=== PATIENT | male | born 1975 ===

== ENCOUNTER 2020-09-09 10:51 | Outpatient (REF) | payer OTHER, SELFPAY ==
[2020-09-09 12:48] LABS: Alanine Aminotransferase 24 U/L (0-40); Albumin Level 4.1 g/dL (3.5-5.0); Alkaline Phosphatase 71 U/L (39-117); Anion Gap 12 (12-20); Aspartate Amino Transferase 20 U/L (5-37); Bilirubin Total 0.4 mg/dL (0.0-1.0); Blood Urea Nitrogen 12 mg/dL (9-16); Calcium 9.3 mg/dL (8.4-10.2); Carbon Dioxide 26 mmol/L (22-29); Chloride 106 mmol/L (96-108); Cholesterol 182 mg/dL; Estimated Glomerular Filt Rate > 60; Glucose Fasting 89 mg/dL (60-99); HDL Cholesterol 41 mg/dL; LDL Cholesterol Calculated 113 mg/dl; Potassium 4.1 mmol/L (3.3-5.1); Sodium 140 mmol/L (135-145); Total Protein 6.9 g/dL (6.5-8.0); Triglycerides 140 mg/dL
== END 2020-09-09 10:52 | disposition home or self-care (01) ==
LOC: HO.LAB 10:51
PROVIDERS: PCP Internal Medicine; Visit Provider Internal Medicine
DX: E78.5 Hyperlipidemia, unspecified (principal); Z83.3 Family history of diabetes mellitus
CPT/HCPCS: 36415; 80053; 80061

== ENCOUNTER 2022-03-29 11:13 | Emergency (ER) | payer OTHER, SELFPAY ==
[2022-03-29 11:21] VITALS: BP 102/63; PULSE 66; RESP 18; TEMP 36.6; O2SAT 100; BMI 22.8
[2022-03-29] MEDS: Diphth,Pertus(ACell),Tet Adult 0.5 ML SYRINGE IM (14:11)
[2022-03-29] MEDS: Lidocaine HCl 1 % MPF 2 ML VIAL INFILTRATI ×4 (14:14→14:15)
--- NOTE | 2022-03-29 14:29 | ED.GENADULT ---
HPI - General Adult General Chief complaint: Wound/Laceration Stated complaint: Lump on butt Time Seen by Provider: 03/29/22 13:53 Source: patient Mode of arrival: ambulatory Limitations: no limitations History of Present Illness HPI narrative: 46 yold male presents to the ED for right buttock painful lump. patient states it has increased in size. Patient denies any rectal pain, rectal bleeding, or recet trauma to buttock area. Related Data Previous Rx's Medication Instructions Recorded cephalexin 500 mg capsule 500 mg PO QID 7 days #28 caps 03/29/22 doxycycline hyclate 100 mg capsule 100 mg PO BID 7 days #14 caps 03/29/22 oxycodone 5 mg capsule 5 mg PO TID PRN pain 3 days #9 caps 03/29/22 Allergies Allergy/AdvReac Type Severity Reaction Status Date / Time No Known Allergies Allergy Verified 12/17/21 13:35 [No Known Allergies*] Review of Systems Review of Systems: buttock abscess Yes all other systems are reviewed and are negative [facility] Past Medical History Medical History Family history of diabetes mellitus Surgical History No pertinent past surgical history Family History Family History Mother Asthma Father Diabetes Social History Social History Housing: House (with girlfriend) Alcohol intake: current Alcohol intake frequency: holidays/special occasions only Patient Tobacco Use Status: Current everyday Tobacco user Tobacco use type: Cigarette Cigarettes Per Day: 4 e-Cigarette/Vaping Use: Never Used Second Hand Smoke Exposure: Yes Advance Directives: Yes Advance Directives Information Provided: Yes Advance Directives on File: No service: Yes Current occupational status: unemployed Cognitive needs: No Hearing needs: No Vision needs: No Physical Exam ED Vital Signs: Vital Signs - 24 hr 03/29/22 11:21 Temperature 98 F Pulse Rate 66 Respiratory Rate 18 Blood Pressure 102/63 Pulse Oximetry 100 Oxygen Delivery Method Room Air BMI result Body Mass Index 22.8 Const General: cooperative, healthy appearing, comfortable, no acute distress, well developed and alert Orientation/consciousness: oriented to person, oriented to place, oriented to time and patient oriented x3 HENNV Head: Yes normal to inspection, Yes No palpable skull fracture present, Yes normocephalic, Yes atraumatic and No abrasion Eyes General: appearance normal, both eyes and all related structures Neck Neck: Yes normal visual inspection, Yes full ROM, Yes no lymphadenopathy, Yes no meningeal signs, Yes trachea midline, Yes supple, No anterior neck swelling and No tender Chest Chest palpation & inspection: normal inspection of the chest and normal palpation of entire chest wall Resp Effort & Inspection: normal respiratory effort and able to speak in complete sentences Auscultation: clear to auscultation bilaterally Cardio Jugular venous distension: no JVD Heart sounds: S1 normal heart sound present and S2 normal heart sound present GI Inspection: Yes normal to inspection and No abdominal wall ecchymosis Palpation (GI): Soft to palpation, not firm, nontender, no guarding and not rigid Back/Spine/Pelvis Back/spine/pelvis image: 1. Fluctuant tender and erythematous. Negative for any tracking abscess to the rectum or anus. Negative for any testicular swelling mass or abscess. Skin General skin exam: no rashes or lesions noted and elasticity normal Neuro General: oriented to person, oriented to place, oriented to time, patient oriented x3, gait normal, tone normal and no meningeal signs Cranial nerves: Yes CN's II-XII intact bilaterally Extrem General: Yes normal to inspection and Yes full ROM Psych Appearance: grossly normal, well kempt and not disheveled Course Course Course Narrative: Tdap ordered will Incision and draainge abscess Reevaluation(s) Reevaluation #1: Lidocaine 12% 6ml was placed into abscess after being cleaned with betatdine iodine and sterile water. Size 11 blade was used for inscision. yellow pus was drained. Forceps was placed into abscess to open pocket two drainaged more abscess. sterile water placed in abscess for wash out. no packing needed. patietn will be dsicharged with antbiotics and pain meds Time: 15:01 Medical Decision Making [facility] Narrative Medical decision making narrative: Abscess Discharge Plan Discharge Clinical Impression: Abscess Patient Disposition: Home, Self-Care Instructions: Abscess (ED), Abscess Incision and Drainage (DC) Additional Instructions: You will be dsicharged with pain medication and antibiotics. Return to the ED for worsening pain, fever, chills, rectal pain, or any other concerning symptoms. Please follow up wiht PCP Prescriptions: New cephalexin 500 mg capsule 500 mg PO QID 7 Days Qty: 28 0RF doxycycline hyclate 100 mg capsule 100 mg PO BID 7 Days Qty: 14 0RF oxycodone 5 mg capsule 5 mg PO TID PRN (Reason: pain) 3 Days Qty: 9 0RF Rx Instructions: Partial Fill upon patient request. Side is effect is drowsiness. Do not take at home or while driving Stand Alone Forms: Work/School Release Interventions: ED Discharge Assessment Last Done: 03/29/22 15:43 Discharge Date/Time: 03/29/22 15:44 Print Language: Upper Sorbian
[2022-03-29] MEDS: oxyCODONE HCl Immed Release 5 MG TABLET PO (14:54)
== END 2022-03-29 15:44 | disposition home or self-care (01) ==
PROVIDERS: Emergency Provider Emergency Medicine; PCP Internal Medicine
DX: L02.31 Cutaneous abscess of buttock (principal); S30.810A Abrasion of lower back and pelvis, initial encounter; F17.210 Nicotine dependence, cigarettes, uncomplicated; X58.XXXA Exposure to other specified factors, initial encounter; Y93.9 Activity, unspecified; Y92.9 Unspecified place or not applicable; Y99.9 Unspecified external cause status; Z71.6 Tobacco abuse counseling
CPT/HCPCS: 10060; 90471; 90715; 99283; 99284

== ENCOUNTER 2022-08-09 09:14 | Outpatient (REF) | payer OTHER, SELFPAY ==
[2022-08-09 11:30] LABS: Alanine Aminotransferase 27 U/L (0-40); Alkaline Phosphatase 70 U/L (39-117); Anion Gap 11 (12-20); Aspartate Amino Transferase 22 U/L (5-37); Bilirubin Total 0.9 mg/dL (0.0-1.0); Blood Urea Nitrogen 16 mg/dL (9-16); Calcium 9.6 mg/dL (8.4-10.2); Carbon Dioxide 28 mmol/L (22-29); Chloride 107 mmol/L (96-108); Cholesterol 176 mg/dL; Estimated Glomerular Filt Rate > 60; Glucose Fasting 97 mg/dL (60-99); HDL Cholesterol 51 mg/dL; LDL Cholesterol Calculated 104 mg/dl; Potassium 4.3 mmol/L (3.3-5.1); Sodium 142 mmol/L (135-145); Total Protein 6.9 g/dL (6.5-8.0); Triglycerides 105 mg/dL
== END 2022-08-09 09:15 | disposition home or self-care (01) ==
LOC: HO.LAB 09:14
PROVIDERS: Internal Medicine; PCP Student in an Organized Health Care Education/Training Program; Visit Provider Student in an Organized Health Care Education/Training Program
DX: Z00.00 Encounter for general adult medical examination without abnormal findings (principal)
CPT/HCPCS: 36415; 80053; 80061

== ENCOUNTER 2023-08-15 09:53 | Outpatient (AMB) | payer OTHER, SELFPAY ==
--- NOTE | 2023-08-15 09:55 | A.OFFPC_ITS ---
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 Required: No Accompanied by: Self / Same As Patient Allergies No Known Allergies [No Known Allergies*] Allergy (Verified 08/15/23 10:20) Medication List - Last Reconciled 08/15/23 by Lisa Umanzor MD No Known Home Meds Tobacco use date assessed: 08/15/23 Dental Screening Dental Screen Date: 08/15/23 Did you have a dental visit in the last 12 months?: No Did you have a dental problem in the last 6 months where you did not have access to dental care?: No Was dental information given to patient?: Yes HPI HPI Comments History of Present Illness Details This is a 48-year-old male that comes for his physical exam. Has never had a colonoscopy and has no family history of colon cancer. Has a submandibular lymphadenopathy in the right side that is nontender and has been present for about 3 months. Denies any fever, weight loss or night sweats. No sore throat or nasal congestion. I will give trial of antibiotics and order an ultrasound. [facility] Medical History (Updated 08/15/23 @ 10:29 by Lisa Umanzor MD) Family history of diabetes mellitus Surgical History H/O removal of cyst Family History Mother Asthma Father Diabetes Social History Housing: House (with girlfriend) Alcohol intake: current Alcohol intake frequency: holidays/special occasions only Alcohol type: hard liquor Patient Tobacco Use Status: Current everyday Tobacco user Tobacco use type: Cigarette Cigarettes Per Day: 7 e-Cigarette/Vaping Use: Never Used Second Hand Smoke Exposure: Yes service: Yes Current occupational status: unemployed Cognitive needs: No Hearing needs: No Vision needs: No Questionnaire PHQ-9 Over the last 2 weeks, how often have you been bothered by any of the following problems? 1. Little interest or pleasure in doing things: not at all 2. Feeling down, depressed, or hopeless: not at all 3. Trouble falling or staying asleep, or sleeping too much: not at all 4. Feeling tired or having little energy: not at all 5. Poor appetite or overeating: not at all 6. Feeling bad about yourself - or that you are a failure or have let yourself or your family down: not at all 7. Trouble concentrating on things, such as reading the newspaper or watching television: not at all 8. Moving or speaking so slowly that other people could have noticed. Or the opposite - being so fidgety or restless that you have been moving around a lot more than usual: not at all 9. Thoughts that you would be better off or of hurting yourself in some way: not at all Total score: 0 Depression Screening Interpretation: Negative Depression Screening Done: Yes 72610 - PHQ-9 Billing: Yes Source: Developed by Drs. Sergei Roberts, Jeanette Buckner, North Grubbs and colleagues, with an educational [place] from [employer]. Thrive Questionnaire Date Thrive assessed: 08/15/23 I am a: Patient What is your living situation today?: I have a steady place to live Within the past 12 months, did the food you bought not last and you didn't have the money to get more?: Never true Within the past 12 months, did you worry whether your food would run out before you got money to buy more?: Never true Do you have trouble paying for medicines?: No Do you have trouble getting transportation to medical appointments?: No Do you have trouble paying your heating and electricity bill?: No Do you have trouble taking care of your child, family member or friend?: No Do you have trouble with day-to-day activities such as bathing, preparing meals, shopping, managing finances, etc.?: No Are you currently unemployed and looking for a job?: No Are you interested in more education?: No Please select the resources that you would like help with: None Currently or been in a relationship where the following occur: no concerns reported THRIVE Score: 0 AUDIT C Alcohol Use Questionnaire (AUDIT-C) 1. How often do you have a drink containing alcohol?: Monthly or less 2. How many drinks containing alcohol do you have on a typical day when you are drinking?: 1 or 2 3. How often do you have six or more drinks on one occasion?: Never Total Score: 1 Score Reviewed/Action Taken: No GENESIS-7 AMB Questionnaire GENESIS-7 Date GENESIS - 7 assessed: 08/15/23 Feeling nervous, anxious, or on edge: 0 = Not at all Not being able to stop or control worryin = Not at all Worrying too much about different things: 0 = Not at all Trouble relaxin = Not at all Being so restless that it is hard to sit still: 0 = Not at all Becoming easily annoyed or irritable: 0 = Not at all Feeling afraid as if something awful might happen: 0 = Not at all Total GENESIS-7 score (0-4 normal; 5-9 mild; 10-14 moderate; 15-21 severe): 0 Source: Developed by Drs. Sergei Roberts, Jeanette Buckner, [place] Grubbs and colleagues, with an educational alexand[place] from [employer]. GENESIS-7 Assessment Billing GENESIS-7 Assessment Tool: GENESIS-7 Assessment 05000 Review of Systems Const All systems reviewed & are unremarkable except as noted in HPI and below Eyes Reports no additional complaints, Denies change in vision and Denies other visual disturbances Card Denies chest pain at rest, Denies chest pain with activity, Denies edema, Denies irregular heart rhythm, Denies claudication, Denies dyspnea, Denies dyspnea on exertion, Denies orthopnea, Denies paroxysmal nocturnal dyspnea and Denies slow heart rate Resp Denies cough, Denies dyspnea and Denies dyspnea on exertion GI Denies abdominal pain, Denies change in bowel habits, Denies excessive flatus, Denies nausea and Denies vomiting Denies urinary hesitancy, Denies urinary incontinence and Denies urinary urgency Musc Denies abnormal gait, Denies atrophy, Denies deformity and Denies limited range of motion Skin/Breast Denies bleeding lesions, Denies changing lesions and Denies rash Neuro Denies abnormal gait and Denies lack of coordination Physical exam (Primary Care) Vital Signs: Last Vital Signs BP 108/70 08/15/23 09:57 BMI result Body Mass Index 23.2 Tobacco/Smoking Status: Tobacco use Status Tobacco use date assessed 03/18/24 03/18/24 10:02 Patient Tobacco Use Status Current everyday Tobacco 08/15/23 10:02 Tobacco use type Cigarette 08/15/23 10:02 e-Cigarette/Vaping Use Never Used 08/15/23 10:02 PHQ-9: PHQ-9 Score PHQ-9: Total score 0 08/15/23 10:23 Depression Screening Interpretation: Negative Thrive Assessment: Date of Thrive Assessment Date Thrive assessed 08/15/23 08/15/23 10:02 Currently or been in a relationship where the following occur: no concerns reported Const Orientation/consciousness: patient oriented x3 HENMT Head: Yes normal to inspection, Yes normocephalic and Yes atraumatic Ears: external ears normal General nose exam: Normal external nose present and No nasal discharge present Face and sinus: Yes sinuses nontender Mouth: lip normal Eyes General: appearance normal, both eyes and all related structures Eyelids: Yes eyelids normal Conjunctivae: conjunctivae normal Neck Neck: Yes normal visual inspection and Yes supple Lymphatic: lymphadenopathy right submandibular single, soft and mobile Resp Effort & Inspection: normal respiratory effort Auscultation: clear to auscultation bilaterally Cardio Jugular venous distension: no JVD Rate: regular rate Rhythm: regular rhythm Heart sounds: S1 normal heart sound present and S2 normal heart sound present GI Inspection: Yes normal to inspection Palpation (GI): Soft to palpation and nontender Auscultation: normal bowel sounds Skin General skin exam: no rashes or lesions noted Neuro General: patient oriented x3 and no focal motor deficits Extrem General: Yes full ROM Psych Appearance: grossly normal Assessment and Plan Assessment & Plan (1) Physical exam: Code(s): Z00.00 - Encounter for general adult medical examination without abnormal findings Plan: Repeat in a year. Orders: Orders Lipid Panel Today Z00.00 - Encounter for general adult medical examination without abnormal findings Comprehensive [place]are. Panel Fast Today Z00.00 - Encounter for general adult medical examination without abnormal findings Complete Blood Count Auto Diff Today R59.1 - Generalized enlarged lymph nodes US soft tiss head and/or neck Today R59.1 - Generalized enlarged lymph nodes Referrals Open Access Screening Colonoscopy Referral Z12.11 - Encounter for screening for malignant neoplasm of colon Medications: New 2 amoxicillin-pot clavulanate 875-125 mg 1 tab PO BID 20 tabs 0RF 10 days R59.1 - Generalized enlarged lymph nodes Coding Level of Care Code Est Pt Prev Care 40-64y(37623) Diagnoses Physical exam Z00.00 Additional Codes GNEESIS-7 Assessment Billing - GENESIS-7 Assessment Tool: GENESIS-7 Assessment 40534 ([id number]) Time Spent (min) 33
[2023-08-15 09:57] VITALS: BP 108/70; BMI 23.2
== END 2023-08-15 10:30 | disposition home or self-care (01) ==
PROVIDERS: Visit Provider Internal Medicine
DX: Z00.00 Encounter for general adult medical examination without abnormal findings (principal)
CPT/HCPCS: 99396

== ENCOUNTER 2023-08-20 08:50 | Outpatient (REF) | payer OTHER, SELFPAY ==
[2023-08-20 09:24] LABS: MANUAL DIFF FLAG NO
[2023-08-20 09:57] LABS: Basophils Absolute Auto 0.1 X10*3/uL (0.0-0.2); Basophils Percent Auto 0.7 % (0-2); Eosinophils Absolute Auto 0.3 X10*3/uL (0.0-0.4); Hematocrit 46.7 % (42.0-52.0); Hemoglobin 16.1 g/dl (14.0-18.0); Imm Gran Abs Auto 0.03 X10*3/uL (0.00-0.03); Imm Gran Pct Auto 0.4 % (0.0-0.4); Lymphocytes Absolute Auto 2.3 X10*3/uL (1.2-4.9); Lymphocytes Percent Auto 29.9 % (20-40); Mean Corpuscular HGB Conc 34.5 g/dl (31.0-36.0); Mean Corpuscular Hemoglobin 30.4 pg (27.0-33.0); Mean Corpuscular Volume 88.3 fL (80.0-98.0); Monocytes Absolute Auto 0.7 X10*3/uL (0.1-1.2); Neutrophils Absolute Auto 4.3 x10*3/uL (2.0-8.3); Platelet Count 243 X10*3/uL (160-400); Red Blood Count 5.29 X10*6/uL (4.60-5.80); Red Cell Distribution Width 13.1 % (11.0-16.0); White Blood Count 7.7 X10*3/uL (4.8-10.8)
[2023-08-20 10:09] LABS: Alanine Aminotransferase 41 U/L (0-40); Albumin Level 4.1 g/dL (3.5-5.0); Alkaline Phosphatase 71 U/L (39-117); Anion Gap 11 (12-20); Aspartate Amino Transferase 28 U/L (5-37); Bilirubin Total 0.4 mg/dL (0.0-1.0); Blood Urea Nitrogen 12 mg/dL (9-16); Carbon Dioxide 24 mmol/L (22-29); Chloride 109 mmol/L (96-108); Cholesterol 180 mg/dL (<200); Estimated Glomerular Filt Rate > 60; Glucose Fasting 105 mg/dL (60-99); HDL Cholesterol 48 mg/dL (>40); LDL Cholesterol Calculated 108 mg/dL (<100); Potassium 3.9 mmol/L (3.3-5.1); Sodium 140 mmol/L (135-145); Triglycerides 121 mg/dL (<150)
== END 2023-08-20 08:51 | disposition home or self-care (01) ==
LOC: HO.LAB 08:50
PROVIDERS: PCP Internal Medicine; Visit Provider Internal Medicine
DX: Z00.00 Encounter for general adult medical examination without abnormal findings (principal); R59.1 Generalized enlarged lymph nodes
CPT/HCPCS: 36415; 80053; 80061; 85025

== ENCOUNTER 2023-08-23 15:21 | Outpatient (REF) | payer OTHER, SELFPAY ==
--- NOTE | ~2023-08-23 | US_ITS ---
EXAMINATION: US SOFT TISSUE NECK CLINICAL INFORMATION: Generalized enlarged lymph nodes. Right submandibular non-tender lymphadenopathy. COMPARISON: None available. TECHNIQUE: Ultrasound of the neck soft tissues is performed with high- frequency gaston-scale imaging and color Doppler. Radiologist was not in attendance. Images were provided for interpretation. FINDINGS: Targeted ultrasound images were obtained by the emergency vehicle technician of the area of concern as indicated by the patient in the right cervical region and demonstrated multiple lymph nodes with examples of the largest as follows: Right level 2 node measures 1.3 x 0.5 x 1.0 cm and demonstrates an echogenic hilum and mildly prominent cortex. Right submandibular region node measures 1.0 x 0.4 x 0.6 cm. Right level 2 atypical node with no demonstrable hilum that measures 0.9 x 0.4 x 0.6 cm, atypical node. Right level 1 nodes with minimally visualized hilum, measures 0.7 x 0.1 x 0.4 cm node with minimally visualized hilum. US/US soft tiss head and/or neck IMPRESSION: Multiple bilateral cervical nodes in the area indicated by the patient as detailed above. Decisions regarding further management including possible additional imaging with CT scan should be based on the clinical assessment. Recommend follow up with ultrasound in 3 months.
== END 2023-08-23 15:22 | disposition home or self-care (01) ==
LOC: HO.US 15:21
PROVIDERS: PCP Internal Medicine; Visit Provider Internal Medicine
DX: R59.1 Generalized enlarged lymph nodes (principal)
CPT/HCPCS: 76536

== ENCOUNTER 2023-11-29 12:58 | Outpatient (REF) | payer OTHER, SELFPAY ==
--- NOTE | ~2023-11-29 | US_ITS ---
EXAMINATION: US SOFT TISSUE NECK CLINICAL INFORMATION: Generalized enlarged lymph nodes. COMPARISON: Ultrasound neck 08/23/2023. TECHNIQUE: Ultrasound of the neck soft tissues is performed with high- frequency gaston-scale imaging and color Doppler. Radiologist was not in attendance. Images were provided for interpretation. FINDINGS: Targeted ultrasound images were obtained by the morning show newscast producer of the area of concern and demonstrated multiple lymph nodes with examples of the largest as follows: Right level II node measures 1.3 x 0.5 x 0.9 (previously 1.3 x 0.5 x 1.0 cm) and demonstrates an echogenic hilum and normal cortex. A right level III lymph node is seen which is enlarged measuring 4.2 x 0.9 x 1.3 with a thickened cortex. This was not identified previously. There is a left level IB lymph node measuring 1.6 x 0.4 x 1.0 cm which appears normal. US/US soft tiss head and/or neck IMPRESSION: Bilateral cervical lymph nodes are seen. The largest is a right level 3 lymph node which is enlarged with a thickened cortex. Contrast-enhanced CT scan of the neck would be best for further evaluation.
== END 2023-11-29 12:59 | disposition home or self-care (01) ==
LOC: HO.US 12:58
PROVIDERS: PCP Internal Medicine; Visit Provider Internal Medicine
DX: R59.1 Generalized enlarged lymph nodes (principal)
CPT/HCPCS: 76536

== ENCOUNTER 2024-01-13 13:54 | Emergency (ER) | payer OTHER, SELFPAY ==
[2024-01-13 14:21] VITALS: BP 110/71; PULSE 65; RESP 18; TEMP 36.2; O2SAT 100; BMI 20.7
--- NOTE | 2024-01-13 14:21 | ED.MALEGU ---
HPI - Male Genitourinary General Chief complaint: Skin/Abscess/Foreign Body Stated complaint: pain private area Time Seen by Provider: 01/13/24 16:39 History of Present Illness ED Provider: Brittany CARMICHAEL Narrative: The patient is a 48-year-old male who noticed a painful lump on his left buttock near the perineal raphe yesterday. It has gotten progressively worse over the last 24 hours and came to the emergency room. No associated fever. The patient had a similar problem 2 years ago and had an abscess drained here in the emergency room. He says this is very similar. Related Data Previous Rx's ?Medication ?Instructions ?Recorded amoxicillin 875 mg-potassium 1 tab PO BID 10 days #20 tabs 08/15/23 clavulanate 125 mg tablet amoxicillin 875 mg tablet 875 mg PO BID #14 tabs 01/13/24 Allergies Allergy/AdvReac Type Severity Reaction Status Date / Time No Known Allergies Allergy Verified 01/13/24 14:26 [No Known Allergies*] Review of Systems Review of Systems: Yes all other systems are reviewed and are negative [facility] Past Medical History Medical History (Updated 01/14/24 @ 00:00 by Keny Blas) Family history of diabetes mellitus Surgical History H/O removal of cyst Family History Family History Mother Asthma Father Diabetes Social History Social History Housing: House Alcohol intake: current Alcohol intake frequency: holidays/special occasions only Alcohol type: hard liquor Patient Tobacco Use Status: Current everyday Tobacco user Tobacco use type: Cigarette Cigarettes Per Day: 7 e-Cigarette/Vaping Use: Never Used Second Hand Smoke Exposure: Yes Advance Directives: No Advance Directives Information Provided: No Do you have a plan to hurt others: No Plan service: Yes Current occupational status: unemployed Cognitive needs: No Hearing needs: No Vision needs: No Physical Exam Vital Signs: Vital Signs: Last Vital Signs Temp 97.1 F 01/13/24 17:40 Pulse 65 01/13/24 17:40 Resp 18 01/13/24 17:40 BP 110/71 01/13/24 17:40 Pulse Ox 100 01/13/24 17:40 O2 Del Method Room Air 01/13/24 17:40 BMI result Body Mass Index 20.7 Const: Other: The patient is a 48-year-old male. He looks as though he is an ordinarily healthy and fit 48-year-old. He looks somewhat uncomfortable however. He seems very nervous. HEENT: Face and sinus: Yes normal facial exam Mouth: Normal oral and palatal mucosa present Throat: Yes posterior oropharynx normal Eyes: General: appearance normal, both eyes and all related structures Resp: Effort & Inspection: normal respiratory effort Skin: Other: There is an area of swelling and tenderness in the right lower buttock near the perineum. No overlying cellulitis. Neuro: Other: The patient is awake and alert with a normal mental status and is moving all 4 extremities normally. He seems neurologically intact. Extrem: General: Yes full ROM and Yes no pedal edema Course Course Course Narrative: This is a Rapid Medical Exam performed in triage by Ariane García PA-C. Full HPI, ROS and PE to be performed by primary ED provider. 48 year-old M w/no sig PMHx presenting to the ED c/o painful ?abscess to perineum x yesterday. States his employer brought him to their doctors and they Rx w/perianal cyst (per paperwork). denies issues urinating or w/BMs. denies drainage from area now PE: area not examined in triage Plan: UA Medications Administered Discontinued Medications Generic Name Dose Route Start Last Admin Trade Name Jaqueline PRN Reason Stop Dose Admin Acetaminophen 975 mg 01/13/24 17:28 01/13/24 17:37 Acetaminophen 325 Mg Tablet PO 01/13/24 17:29 975 mg ONCE ONE Administration Amoxicillin/Clavulanate Potassium 875 mg 01/13/24 17:28 01/13/24 17:36 Amoxicillin/Potassium Clav 875 Mg Tablet PO 01/13/24 17:29 875 mg ONCE ONE Administration Ibuprofen 600 mg 01/13/24 17:28 01/13/24 17:36 Ibuprofen 600 Mg Tablet PO 01/13/24 17:29 600 mg ONCE ONE Administration Lidocaine/Epinephrine 10 ml 01/13/24 16:53 01/13/24 17:00 Lidocaine Hcl 1%/Epi 1:100,000 10 Ml Vial INFILTRATI 01/13/24 16:54 10 ml ONCE ONE Administration Medical Decision Making Medical Decision Making [facility] Narrative: The patient is a 48-year-old male who presents with what seems to be a perianal abscess on the right lower buttock near the perineum. This was confirmed with bedside ultrasound that showed fluid-filled collection. The patient has had a previous abscess drainage in the past. The patient understood the procedure. He was laid on his right side with his knees drawn up. The skin was prepped with Betadine. He was anesthetized with lidocaine with epinephrine. Incision was made the drainage of pus. An iodoform gauze packing was placed. The patient will be discharged to follow up with General surgery. The patient was put on Augmentin. Lab Data Labs: Lab Results 01/13/24 Range/Units 17:04 Urine Color Yellow Urine Appearance Clear Urine pH 7.0 (5.0-9.0) Ur Specific [place] 1.020 (1.005-1.025) Urine Protein Negative (Neg-Trace) mg/dL Urine Glucose (UA) Negative (Negative) mg/dL Urine Ketones Negative (Negative) mg/dL Urine Blood Negative (Negative) Urine Nitrite Negative (Negative) Ur Leukocyte Esterase Negative (Negative) Discharge Plan Discharge Clinical Impression: Perianal abscess Patient Disposition: Home, Self-Care Instructions: Rectal Abscess (ED), Abscess Incision and Drainage (DC) Additional Instructions: You had an abscess on your left buttock which has been drained. A piece of gauze was placed in the abscess cavity to help allow additional drainage. The gauze may fall out on its own in the next day or 2. That is okay. You may follow up with your regular doctor for this problem but it would also probably be good for you to see a general surgeon. You have been given the name and number of Dr. Norton, a general surgeon. I would recommend calling her office in the morning for a follow up appointment in the next couple of days. Take the antibiotic Augmentin 2 times a day as prescribed. You may use ibuprofen and acetaminophen as needed for pain. Return to the emergency room if any problems. Prescriptions: New amoxicillin 875 mg tablet 875 mg PO BID Qty: 14 0RF No Action amoxicillin-pot clavulanate 875-125 mg tablet 1 tab PO BID 10 Days Qty: 20 0RF Referrals: Kristin Norton MD [Physician] - (perianal abscess) Lisa Foreman MD [Primary Care Provider] - (Perianal abscess) Stand Alone Forms: Work/School Release Interventions: ED Discharge Assessment Last Done: 01/13/24 17:40 Discharge Date/Time: 01/13/24 17:41 Print Language: Maltese
[2024-01-13] MEDS: Lidocaine HCl 1%/Epi 1:100,000 10 ML VIAL INFILTRATI (17:00)
[2024-01-13] MEDS: Amoxicillin/Potassium Clav 875 MG TABLET PO (17:36)
[2024-01-13] MEDS: Ibuprofen 600 MG TABLET PO (17:36)
[2024-01-13] MEDS: Acetaminophen 325 MG TABLET 975 MG PO (17:37)
[2024-01-13 17:40] VITALS: BP 110/71; PULSE 65; RESP 18; TEMP 36.2; O2SAT 100
[2024-01-13 17:42] LABS: Appearance Urine Clear; Color Urine Yellow; Glucose Urine UA Negative (Negative); Leukocyte Esterase Urine Negative (Negative); Nitrite Urine Negative (Negative); Urine Blood Negative (Negative); Urine Ketones Negative (Negative); Urine Protein Negative (Neg-Trace)
== END 2024-01-13 17:41 | disposition home or self-care (01) ==
PROVIDERS: Physician Assistant; Emergency Provider Emergency Medicine; PCP Internal Medicine
DX: L02.31 Cutaneous abscess of buttock (principal); F17.210 Nicotine dependence, cigarettes, uncomplicated
CPT/HCPCS: 10060; 81003; 99283; 99284